=== PATIENT | male | born 1965 | race Caucasian/White ===

== ENCOUNTER 2020-06-28 17:11 | Emergency (ER) | payer OTHER, SELFPAY ==
[2020-06-28 17:20] VITALS: PULSE 73; RESP 16; TEMP 36.8; O2SAT 97
--- NOTE | 2020-06-28 18:27 | DI.RAD.S_ITS ---
PROCEDURE: XR HIP W PEL IF DONE LT 2V INDICATIONS: L hip pain TECHNIQUE: 2 views of the hip were acquired. COMPARISON: None. FINDINGS: Bones: Ikht-gc-xeycfyct joint space narrowing and osteophytosis of the left hip with appearance suggestive of pincer type femoroacetabular impingement morphology. No fractures or dislocations. No suspicious bony lesions. The visualized pelvic ring appears intact. Soft tissues: No suspicious soft tissue calcifications or masses. IMPRESSION: No acute finding. 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 on 06/28/2020 at 18:51 Approved by: Rob Wang M.D. on 06/28/2020 at 18:52
--- NOTE | 2020-06-28 18:40 | ED.LOWEXIN ---
HPI - Extremity Injury (Lower) General Chief Complaint: Extremity Injury, Lower Stated Complaint: left hip pain Time Seen by Provider: 06/28/20 18:06 Source: patient and family Mode of arrival: Wheelchair History of Present Illness HPI Narrative: Patient here for left hip pain. No known injury. No previous problems with the hip. No surgeries. No recent illness. No fever chills. No IV drug use. No diabetes. 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 He states he did sit at an odd angle on his left hip for a couple hours and since then has had pain. Has point tenderness to the left hip. No no no back pain. No saddle paresthesia no numbness or tingling weakness to the legs. No foot drop. Patient states he can sit at his desk upwards to 3 hours at a time getting up. Since the pandemic/covid working from home he has been sitting a lot. Related Data Previous Rx's Medication Instructions Recorded hydrocodone-acetaminophen 1 tab PO Q6H PRN #12 tab 06/28/20 ibuprofen 800 mg PO Q8H PRN #20 tab 06/28/20 ondansetron 4 mg PO Q8H PRN #10 tab 06/28/20 Allergies Allergy/AdvReac Type Severity Reaction Status Date / Time No Known Drug Allergies Allergy Verified 06/28/20 17:20 Review of Systems Review of Systems Narrative: GENERAL: Denies chills, fatigue, malaise, fever, sweats. HEENT: Denies sinus pain, ear pain, sore throat, difficulty swallowing, dizziness. RESPIRATORY: Denies dyspnea, cough, wheezing, hemoptysis, sputum. CARDIOVASCULAR: Denies chest pain, palpitations, orthopnea, edema, GASTROINTESTINAL: Denies nausea, vomiting, abdominal pain, diarrhea, constipation, melena. : Denies dysuria, frequency, incontinence, hematuria, urinary retention. MUSCULOSKELETAL: denies weakness, complains of joint pain, or bony pain SKIN: Denies rash, skin lesions NEUROLOGIC: Denies weakness, headache, numbness, change in speech, confusion, seizures, incoordination. PSYCHIATRIC: No concerning psychosocial issues. ROS Unobtainable: All systems reviewed & are unremarkable except as noted in HPI and below Exam Narrative Exam Narrative: GENERAL: patient appears stated age. Well-nourished, well-developed patient, in no distress, not toxic HEAD: Atraumatic. Normocephalic. . EXTREMITIES: pajama pants pulled down. No rash on the left lower extremity. Nontender knee and ankle. No rash overlying the left hip. There is very pinpoint is admitted local tenderness this patient had the left hip. Limited range of motion limited flexion extension due to pain. No shortening or rotation of the left leg. Leg is warm soft and pink. Has to use his arms to move his legs to minimize the pain in his left leg when moving. Able to stand and bear weight but it is very painful with ambulation attempts and bearing weight. At bedside. No foot drop BACK: Nontender without deformity or crepitance. No flank tenderness. Able to do side been sling for Marybeth any back pain. NEURO: AOx4. SKIN: No rash or erythema of visible areas PSYCH: Not anxious, is cooperative Initial Vital Signs Initial Vital Signs: Vital Signs Temperature 98.2 F 06/28/20 17:20 Pulse Rate 73 06/28/20 17:20 Respiratory Rate 16 06/28/20 17:20 Pulse Oximetry 97 06/28/20 17:20 Course Course Course Narrative: Pain improving with medications. Orders Ordered: ED Orders 06/28/20 18:27 XR hip w pel if done LT 2V Stat 06/28/20 18:39 CT pelvis wo con Stat Discontinued Medications Hydrocodone Bitart/Acetaminophen ([place] 5/325) 2 tab PO NOW ONE Stop: 06/28/20 18:40 Last Admin: 06/28/20 19:07 Dose: 2 tab Documented by: RAFFAELE Ketorolac Tromethamine (Toradol) 30 mg IM NOW ONE Stop: 06/28/20 18:40 Last Admin: 06/28/20 19:08 Dose: 30 mg Documented by: RAFFAELE Ondansetron HCl (Zofran Odt) 4 mg SL NOW ONE Stop: 06/28/20 18:40 Last Admin: 06/28/20 19:08 Dose: 4 mg Documented by: RAFFAELE Reevaluation(s) Reevaluation #1: Patient states pain is better after medications given here. Reviewed CT scan and x-rays with patient. He agrees with treatment plan and follow-up. Not toxic at discharge Time: 20:20 Vital Signs Vital signs: Vital Signs - 8 hr 06/28/20 17:20 06/28/20 19:42 Temperature 98.2 F Pulse Rate 73 67 Respiratory Rate 16 14 Blood Pressure 111/71 Pulse Oximetry 97 96 MDM - Extremity Injury (Lower) Differential Diagnosis Differential diagnosis: Likely other (Hip bursitis/hip strain/occult fracture vital/pathologic fracture) Lab Data Lab results narrative: No as indicated this time. Imaging Data CT pelvis without contrast: Radiologist's Impression: [address] [address] [address] Scan Report Signed Patient: Kin Germain [facility]#: [id number] : 1965Acct:[id number] Age/Sex: 55 / MDate of Service: 06/28/20 Loc: ED Accession Number: [id number] Procedure: CT pelvis wo con Ordering Provider: Jesse Villavicencio MD PROCEDURE: CT PEL WO CON INDICATIONS: left hip pain TECHNIQUE: Noncontrast 3 mm axial sections acquired through the bony pelvis, with coronal and sagittal reformatting. COMPARISON: None. FINDINGS: Image quality: Excellent. Bones: No suspicious lytic or blastic osseous lesion. There is no fracture. Trace and symmetric osteoarthritic changes of both hips. Lower lumbar spine is intact. Sacrum and sacroiliac joints unremarkable. Soft tissues: No significant soft tissue abnormality. The visualized unenhanced lower abdominal and pelvic visceral structures are unremarkable. IMPRESSION: Normal CT of the pelvis with trace degenerative changes in both hips. Dictated by: Rob Wang M.D. on 06/28/2020 at 19:28 Approved by: Rob Wang M.D. on 06/28/2020 at 19:31 X-ray left hip: Radiologist's Impression: [address] [address] XRay Report Signed Patient: Kin Germain [facility]#: [id number] : 1965Acct:[id number] Age/Sex: 55 / MDate of Service: 06/28/20 Loc: ED Accession Number: [id number] Procedure: XR hip w pel if done LT 2V Ordering Provider: Jesse Villavicencio MD PROCEDURE: XR HIP W PEL IF DONE LT 2V INDICATIONS: L hip pain TECHNIQUE: 2 views of the hip were acquired. COMPARISON: None. FINDINGS: Bones: Ezjw-ft-vqdfyoyp joint space narrowing and osteophytosis of the left hip with appearance suggestive of pincer type femoroacetabular impingement morphology. No fractures or dislocations. No suspicious bony lesions. The visualized pelvic ring appears intact. Soft tissues: No suspicious soft tissue calcifications or masses. IMPRESSION: No acute finding. 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 on 06/28/2020 at 18:51 Approved by: Rob Wang M.D. on 06/28/2020 at 18:52 [facility] Narrative Medical decision making narrative: Appropriate for discharge home. No fever chills no labs indicated at this time. Likely clinically left hip strain/possible bursitis. No history IV drug use. No diabetes no immune suppression. Low likelihood of septic joint. Discharge Plan Departure Patient Disposition: Home Clinical Impression: Strain of left hip Qualifiers: Encounter type: initial encounter Qualified Code(s): S76.012A - Strain of muscle, fascia and tendon of left hip, initial encounter Discharge Date/Time: 06/28/20 20:20 Instructions: How to Use Crutches, DI for Hip Pain Activity Restrictions/Additional Instructions: No driving tonight. Use crutches when up and walking. Called provided orthopedic office tomorrow for office recheck of your left hip pain and may need to call primary care phone number to establish family doctor for referral for physical therapy and possible outpatient MRI of the left hip. Return if worse or for any questions or concerns. Prescriptions: New ibuprofen 800 mg tablet 800 mg PO Q8H PRN (Reason: pain) Qty: 20 RF: 0 hydrocodone-acetaminophen 5-325 mg tablet 1 tab PO Q6H PRN (Reason: pain) Qty: 12 RF: 0 ondansetron 4 mg tablet,disintegrating 4 mg PO Q8H PRN (Reason: nausea and vomiting) Qty: 10 RF: 0 Referrals: [facility] [Outside] Sha Ballesteros MD [Physician] -
[2020-06-28] MEDS: HYDROCODONE/ACET 5/325 TABLET 2 TAB PO (19:07)
[2020-06-28] MEDS: KETOROLAC 60 MG/2 ML VIAL 30 MG IM (19:08)
[2020-06-28] MEDS: ONDANSETRON 4 MG ODT SL (19:08)
[2020-06-28 19:42] VITALS: BP 111/71; PULSE 67; RESP 14; O2SAT 96
== END 2020-06-28 20:20 | disposition home or self-care (01) ==
PROVIDERS: Emergency Provider Emergency Medicine
DX: S76.012A Strain of muscle, fascia and tendon of left hip, initial encounter (principal)
CPT/HCPCS: 72192; 73502; 96372; 99283; 99284; J1885

== ENCOUNTER → 2020-12-21 15:41 | Outpatient (CLI) | payer OTHER, SELFPAY ==
[2020-12-21 17:43] LABS: Add Manual Diff / Slide Review NO; Basophils Absolute Auto 100 /uL (0-100); Basophils Percent Auto 1.1 % (0-2); Eosinophils Absolute Auto 300 /uL (0-450); Eosinophils Percent Auto 4.8 % (2-4); Hematocrit 44.1 % (41-53); Hemoglobin 15.1 g/dL (13.5-17.5); Lymphocytes Absolute Auto 2300 /uL (1100-4500); Lymphocytes Percent Auto 38.3 % (25-40); Mean Corpuscular HGB Conc 34.4 % (30-36); Mean Corpuscular Hemoglobin 31.1 PG (26-34); Mean Corpuscular Volume 90.5 fL (80-100); Monocytes Absolute Auto 500 /uL (0-900); Monocytes Percent Auto 7.8 % (3-14); Neutrophils Absolute Auto 2900 /uL (1500-7000); Platelet Count 231 X10^3/uL (150-400); Red Blood Cell Count 4.87 X10^6/uL (4.5-5.9); Red Cell Distribution Width 13.6 % (11.6-14.8)
[2020-12-21 17:53] LABS: Alanine Aminotransferase 17 IU/L (<50); Albumin 4.5 g/dL (3.5-5.0); Albumin Globulin Ratio 1.5 (1.0-2.8); Alkaline Phosphatase 77 U/L (38-126); Aspartate Aminotransferase 26 IU/L (17-59); BUN Creatinine Ratio 19.4 (6-22); Bilirubin Total 0.7 mg/dL (0.2-1.3); Blood Urea Nitrogen 19 mg/dL (9-20); Calcium 9.5 mg/dL (8.4-10.2); Carbon Dioxide 27 mmol/L (22-32); Chloride 103 mmol/L (98-107); Cholesterol 185 mg/dL (140-199); Estimated Glomerular Filt Rate > 60.0 mL/min (>60); Globulin 3.1 g/dL (1.7-4.1); Glucose 92 mg/dL (70-100); HDL Cholesterol 53 mg/dL (40-60); HEMOLYSIS < 15 (0-50); LDL Cholesterol Calculated 122 mg/dL (<100); Potassium 4.2 mmol/L (3.4-5.1); Sodium 139 mmol/L (137-145); Total Protein 7.6 g/dL (6.3-8.2); Triglycerides 51 mg/dL (35-150)
[2020-12-21 18:22] LABS: Prostate Specific Antigen Scrn 2.39 ng/mL (0.1-4.0)
== END ==
PROVIDERS: PCP Family Medicine; Referring Provider Family Medicine; Visit Provider Family Medicine
DX: K62.5 Hemorrhage of anus and rectum (principal); N40.1 Benign prostatic hyperplasia with lower urinary tract symptoms; Z12.5 Encounter for screening for malignant neoplasm of prostate; Z13.220 Encounter for screening for lipoid disorders
CPT/HCPCS: 36415; 80053; 80061; 85025; G0103

== ENCOUNTER → 2021-01-05 08:21 | Outpatient (CLI) | payer OTHER, SELFPAY ==
[2021-01-05] MEDS: COVID-19 VACC #1, MRNA(MOD) 100 MCG/0.5 ML VIAL IM (08:25)
== END ==
PROVIDERS: PCP Family Medicine; Visit Provider Internal Medicine
DX: Z23 Encounter for immunization (principal)
CPT/HCPCS: 0011A; 91301

== ENCOUNTER → 2021-02-01 15:58 | Outpatient (CLI) | payer OTHER, SELFPAY ==
[2021-02-01] MEDS: COVID-19 VACC #2, MRNA(MOD) 100 MCG/0.5 ML VIAL IM (16:12)
== END ==
PROVIDERS: PCP Family Medicine; Visit Provider Internal Medicine
DX: Z23 Encounter for immunization (principal)
CPT/HCPCS: 0012A; 91301

== ENCOUNTER → 2021-05-18 15:49 | Outpatient (CLI) | payer OTHER, SELFPAY ==
[2021-05-18 16:28] LABS: COVID19 -Nasal RAPID Negative (Negative)
== END ==
PROVIDERS: PCP Family Medicine; Visit Provider Nurse Practitioner
DX: J02.9 Acute pharyngitis, unspecified (principal); Z20.822 Contact with and (suspected) exposure to COVID-19
CPT/HCPCS: 87635

== ENCOUNTER → 2022-05-19 16:31 | Outpatient (CLI) | payer OTHER, SELFPAY | PROVIDERS: PCP Family Medicine; Visit Provider Nurse Practitioner Critical Care Medicine | DX: R50.9 Fever, unspecified (principal) | CPT/HCPCS: 87077; 87086; 87186 ==

== ENCOUNTER → 2022-06-06 16:28 | Outpatient (CLI) | payer OTHER, SELFPAY ==
--- NOTE | 2022-06-06 16:33 | DI.RAD.S_ITS ---
PROCEDURE: XR RIBS RT MIN 3V W CXR 1V INDICATIONS: fx? lung shadow ok? TECHNIQUE: 2 views of the right ribs were acquired, along with a single view chest. COMPARISON: None. FINDINGS: Surgical changes and devices: None. Bones and chest wall: No fractures or dislocations. No suspicious bony lesions. Overlying soft tissues appear unremarkable. Lungs and pleura: No pleural effusions or pneumothorax. Lungs appear clear. Mediastinum: Mediastinal contours appear normal. Heart size is normal. IMPRESSION: No displaced right rib fractures. Dictated by: Comfort Toure M.D. on 06/07/2022 at 9:02 Approved by: Comfort Toure M.D. on 06/07/2022 at 9:03
[2022-06-06 16:49] LABS: Add Manual Diff / Slide Review NO; Basophils Absolute Auto 0 /uL (0-100); Basophils Percent Auto 0.5 % (0-2); Eosinophils Absolute Auto 200 /uL (0-450); Hematocrit 44.1 % (41-53); Hemoglobin 14.8 g/dL (13.5-17.5); Lymphocytes Absolute Auto 2200 /uL (1100-4500); Lymphocytes Percent Auto 26.5 % (25-40); Mean Corpuscular HGB Conc 33.6 % (30-36); Mean Corpuscular Hemoglobin 30.4 PG (26-34); Mean Corpuscular Volume 90.7 fL (80-100); Monocytes Absolute Auto 700 /uL (0-900); Monocytes Percent Auto 7.9 % (3-14); Neutrophils Absolute Auto 5100 /uL (1500-7000); Neutrophils Percent Auto 62.1 % (50-75); Platelet Count 335 X10^3/uL (150-400); Red Blood Cell Count 4.86 X10^6/uL (4.5-5.9); Red Cell Distribution Width 14.1 % (11.6-14.8); White Blood Cell Count 8.2 X10^3/uL (4.5-11.0)
[2022-06-06 17:13] LABS: Alanine Aminotransferase 29 IU/L (<50); Albumin 4.5 g/dL (3.5-5.0); Albumin Globulin Ratio 1.3 (1.0-2.8); Alkaline Phosphatase 96 U/L (38-126); Aspartate Aminotransferase 32 IU/L (17-59); BUN Creatinine Ratio 18.8 (6-22); Bilirubin Total 0.4 mg/dL (0.2-1.3); Blood Urea Nitrogen 18 mg/dL (9-20); Calcium 8.7 mg/dL (8.4-10.2); Carbon Dioxide 30 mmol/L (22-32); Chloride 101 mmol/L (98-107); Creatine Kinase 88 U/L (55-170); Estimated Glomerular Filt Rate > 60 mL/min (>60); Globulin 3.5 g/dL (1.7-4.1); Glucose 94 mg/dL (70-100); HEMOLYSIS < 15 (0-50); Potassium 4.1 mmol/L (3.4-5.1); Sodium 139 mmol/L (137-145)
[2022-06-06 17:17] LABS: High Sensitivity CRP - Cardiac 1.2 mg/L (1.0-3.0)
[2022-06-06 17:24] LABS: Troponin I < 0.012 ng/mL (0.01-0.034)
[2022-06-06 18:08] LABS: TSH w/ Reflex to FT4 1.71 uIU/mL (0.47-4.68)
== END ==
PROVIDERS: PCP Family Medicine; Referring Provider Pediatrics; Visit Provider Pediatrics
DX: R07.81 Pleurodynia (principal); R07.9 Chest pain, unspecified
CPT/HCPCS: 36415; 71101; 80053; 82550; 84443; 84484; 85025; 86140

== ENCOUNTER → 2022-06-07 09:36 | Outpatient (CLI) | payer OTHER, SELFPAY | PROVIDERS: PCP Family Medicine; Visit Provider Registered Nurse | DX: N39.0 Urinary tract infection, site not specified (principal) | CPT/HCPCS: 87086 ==

== ENCOUNTER → 2022-06-18 13:24 | Outpatient (CLI) | payer OTHER, SELFPAY | PROVIDERS: PCP Family Medicine; Visit Provider Registered Nurse | DX: R30.0 Dysuria (principal) | CPT/HCPCS: 87077; 87086; 87186 ==

== ENCOUNTER → 2022-06-20 14:07 | Outpatient (CLI) | payer OTHER, SELFPAY ==
[2022-06-22 12:52] LABS: Appearance Urine UA CLEAR; Bilirubin Urine UA NEGATIVE (NEGATIVE); Color Urine UA YELLOW; Glucose Urine UA NEGATIVE (Negative); Ketones Urine UA NEGATIVE (NEGATIVE); Leukocyte Esterase Urine UA 1+ (NEGATIVE); Nitrite Urine UA NEGATIVE (Negative); Occult Blood Urine UA NEGATIVE (Negative); Protein Urine UA NEGATIVE (Negative); Urobilinogen Urine UA 0.2 E.U./dL (0.2)
[2022-06-22 13:00] LABS: Bacteria Urine Moderate (10-30); Culture Indicated Urine Specimen Cultured; RBC Urine None Seen (0-5/HPF); WBC Urine 5-10/HPF (0-5/HPF)
== END ==
PROVIDERS: Nurse Practitioner Critical Care Medicine; PCP Family Medicine; Visit Provider Urology
DX: N30.01 Acute cystitis with hematuria (principal); N40.1 Benign prostatic hyperplasia with lower urinary tract symptoms; N41.1 Chronic prostatitis; R07.89 Other chest pain; Z87.442 Personal history of urinary calculi
CPT/HCPCS: 51798; 81001; 81002; 87086

== ENCOUNTER → 2022-07-03 13:18 | Outpatient (CLI) | payer OTHER, SELFPAY ==
--- NOTE | 2022-07-03 | DI.CT.S_ITS ---
PROCEDURE: CT IVP A/P W/WO INDICATIONS: Acute cystitis;Hematuria TECHNIQUE: Optional 5 mm thick noncontrast images acquired from the diaphragm to the symphysis pubis. After the administration of intravenous contrast, 5 mm thick images acquired from the diaphragm to the symphysis pubis after a 10-minute delay. 2 mm thick coronal and sagittal reformats were then performed of the kidneys and ureters. For radiation dose reduction, the following was used: automated exposure control, adjustment of mA and/or kV according to patient size. COMPARISON: [facility], CT, CT PEL WO CON, 06/28/2020, 18:51. FINDINGS: Image quality: Slight motion degradation Lower chest: Suspected basal atelectasis/scarring. Solid organs: Liver is unremarkable. Gallbladder is collapsed. No biliary ductal dilation. Pancreas is unremarkable. No splenomegaly. No adrenal nodules. No renal mass. No hydronephrosis. No renal calculi. No ureter mass/filling defect. There is prostatomegaly with suspected median lobe hypertrophy protruding at the base of the bladder. No definite filling defect. No bladder stone or mass identified. Prostate is enlarged with heterogeneous enhancement, not well evaluated on CT. Vessels and lymph nodes: No abdominal aortic aneurysm. Prominent, non-specific lymph nodes are present that are not enlarged by size criteria. Bowel and peritoneum: No bowel obstruction. There are colonic diverticula. No pathologic ascites. Body wall: Small fat containing umbilical hernia Pelvis: As above. Bones: No acute or suspicious osseous abnormality. IMPRESSION: No CT abnormalities identified for hematuria. Lower tract disease would be evaluated better with cystoscopy if needed. If there is concern for prostate pathology, consider correlation with PSA and MRI. Dictated by: Blade France M.D. on 07/03/2022 at 16:24 Approved by: Blade France M.D. on 07/03/2022 at 16:32
== END ==
PROVIDERS: PCP Family Medicine; Referring Provider Urology; Visit Provider Urology
DX: N30.01 Acute cystitis with hematuria (principal)
CPT/HCPCS: 74178; Q9967

== ENCOUNTER → 2022-07-30 12:53 | Outpatient (CLI) | payer OTHER, SELFPAY ==
[2022-07-30 15:34] LABS: Appearance Urine UA CLEAR; Bilirubin Urine UA NEGATIVE (NEGATIVE); Color Urine UA YELLOW; Glucose Urine UA NEGATIVE (Negative); Ketones Urine UA NEGATIVE (NEGATIVE); Leukocyte Esterase Urine UA 1+ (NEGATIVE); Nitrite Urine UA NEGATIVE (Negative); Occult Blood Urine UA NEGATIVE (Negative); Protein Urine UA NEGATIVE (Negative); Specific Gravity Urine UA 1.015 (1.000-1.035); Urobilinogen Urine UA 0.2 E.U./dL (0.2)
[2022-07-30 15:35] LABS: Bacteria Urine None Seen; Culture Indicated Urine Specimen Cultured; RBC Urine 0-1/HPF (0-5/HPF); WBC Urine 10-30/HPF (0-5/HPF)
== END ==
PROVIDERS: PCP Family Medicine; Referring Provider Urology; Visit Provider Urology
DX: N30.90 Cystitis, unspecified without hematuria (principal); N40.1 Benign prostatic hyperplasia with lower urinary tract symptoms
CPT/HCPCS: 81001; 87086

== ENCOUNTER → 2022-08-01 12:42 | Outpatient (CLI) | payer OTHER, SELFPAY | PROVIDERS: PCP Family Medicine; Visit Provider Physician Assistant Medical | DX: R30.9 Painful micturition, unspecified (principal) | CPT/HCPCS: 87077; 87086; 87186 ==

== ENCOUNTER → 2022-08-09 09:41 | Outpatient (CLI) | payer OTHER, SELFPAY | PROVIDERS: PCP Family Medicine; Visit Provider Urology | DX: N41.0 Acute prostatitis (principal); N41.1 Chronic prostatitis; N39.0 Urinary tract infection, site not specified; R31.9 Hematuria, unspecified; Z87.442 Personal history of urinary calculi | CPT/HCPCS: 81002; 87086 ==

== ENCOUNTER → 2023-10-01 10:22 | Outpatient (CLI) | payer OTHER, SELFPAY ==
[2023-10-01 11:47] LABS: Prostate Specific Antigen Scrn 2.41 ng/mL (0.1-4.0)
== END ==
PROVIDERS: PCP Family Medicine; Referring Provider Urology; Visit Provider Urology
DX: Z12.5 Encounter for screening for malignant neoplasm of prostate (principal)
CPT/HCPCS: 36415; G0103